=== PATIENT | male | born 1945 | race Hispanic/Latino ===

== ENCOUNTER 2021-08-02 11:00 | Inpatient (IN) | payer OTHER ==
[~2021-08-02] VITALS: Ht 170.2 cm; Wt 88.1 kg
[2021-08-02 13:26] LABS: APPEARANCE,URINE Clear (CLEAR); BILIRUBIN,URINE Negative (NEGATIVE); COLOR,URINE Yellow (YELLOW); GLUCOSE, URINE (UA) Negative (NEGATIVE); KETONES,URINE Negative (NEGATIVE); LEUKOCYTE ESTERASE ,URINE Negative (NEGATIVE); NITRATE,URINE Negative (NEGATIVE); OCCULT BLOOD,URINE Negative (NEGATIVE); PH,URINE 6.5 (5.0-8.0); PROTEIN,URINE Negative (NEGATIVE); UROBILINOGEN,URINE 0.2 mg/dL (0.2-1.0)
[2021-08-02 13:26] LABS: BASOPHILS % (AUTO) 0.4 % (0.0-5.0); EOSINOPHILS % (AUTO) 3.1 % (0.0-8.0); HEMATOCRIT 41.5 % (42-54); LYMPHOCYTES % (AUTO) 22.6 % (21.0-51.0); MEAN CORPUSCULAR HEMOGLOBIN 32.2 pg (27.0-33.0); MEAN CORPUSCULAR HGB CONC 32.8 g/dL (32.0-36.0); MEAN CORPUSCULAR VOLUME 98.3 fL (79-99); MONOCYTES % (AUTO) 10.4 % (3.0-13.0); NEUTROPHILS % (AUTO) 63.2 % (40.0-77.0); PLATELET COUNT (AUTO) 169 K/uL (130-400); RED BLOOD CELL COUNT(AUTO) 4.22 MIL/uL (4.50-6.20); RED CELL DISTRIBUTION WIDTH 12.7 % (11.0-15.5); WHITE BLOOD COUNT (AUTO) 7.8 K/uL (4.8-10.8)
[2021-08-02 13:35] LABS: INR 0.93 (0.85-1.15); PROTHROMBIN TIME 10.2 SEC (9.6-11.6)
[2021-08-02 13:36] LABS: PARTIAL THROMBOPLASTIN TIME 27.8 SEC (26.3-35.5)
[2021-08-02 13:40] LABS: CREATININE 0.7 mg/dL (0.5-1.5); POTASSIUM 4.3 mmol/L (3.5-5.1)
[2021-08-04] VITALS (22 sets, daily range): BP systolic 108–147; BP diastolic 49–66
[2021-08-04] MEDS ORDERED: CEFAZOLIN SODIUM 1 GM VIAL ONE ×2 (06:42→07:27)
[2021-08-04] MEDS ORDERED: 0.9%NACL 1000ML 1,000 ML IV ONE (06:43)
[2021-08-04] MEDS ORDERED: CEFAZOLIN SODIUM 1 GM VIAL IVP ONE (08:00)
[2021-08-04] MEDS ORDERED: LIDOCAINE PF 100MG/5ML (2%) SYRINGE 5ML ONE (08:05)
[2021-08-04] MEDS ORDERED: PROPOFOL 10 MG/ML 20ML VIAL IV ONE (08:05)
[2021-08-04] MEDS ORDERED: SUCCINYLCHOLINE CHLORIDE 20 MG/ML 10 ML VIAL ONE (08:05)
[2021-08-04] MEDS ORDERED: ROCURONIUM 10MG/1ML SYR 10 MG/ML ML ONE (08:06)
[2021-08-04] MEDS ORDERED: KETAMINE 50MG/ML SYRINGE 50 MG/ML DISP.SYRIN IV ONE (08:07)
[2021-08-04] MEDS ORDERED: GLYCOPYRROLATE 1 MG/5 ML SYRINGE ONE (08:25)
[2021-08-04] MEDS ORDERED: TRANEXAMIC ACID 1000MG/10ML ONE ×2 (08:26→10:41)
[2021-08-04] MEDS ORDERED: ROPIVACAINE 0.5% 5MG/ML 30ML IJ ONE (08:26)
[2021-08-04] MEDS ORDERED: LISI40TA9 PO (09:20)
[2021-08-04] MEDS ORDERED: METF-445 PO (09:20)
[2021-08-04] MEDS ORDERED: AEC81 PO (09:20)
[2021-08-04] MEDS ORDERED: GLIP5TAB11 PO (09:20)
[2021-08-04] MEDS ORDERED: AMLO-257 PO (09:20)
[2021-08-04] MEDS ORDERED: LEVO75CA5 PO (09:20)
[2021-08-04] MEDS ORDERED: ACET-66 PO (09:20)
[2021-08-04] MEDS ORDERED: FENTANYL CITRATE PF 50 MCG/1 ML 2ML VIAL ONE (09:31)
[2021-08-04] MEDS ORDERED: ONDANSETRON 4MG INJ ONE (09:58)
[2021-08-04] MEDS ORDERED: NEOSTIGMINE 5MG/5ML SYR IV ONE (09:59)
[2021-08-04] MEDS ORDERED: POTASSIUM CHLORIDE 10% ELIXIR 20 MEQ/15 ML UDCUP PO PRN (10:30)
[2021-08-04] MEDS ORDERED: TEMAZEPAM 15 MG CAPSULE PO PRN (10:30)
[2021-08-04] MEDS ORDERED: FERROUS FUMARATE 324 MG TABLET PO PRN (10:30)
[2021-08-04] MEDS ORDERED: ONDANSETRON 4MG INJ IVP PRN (10:30)
[2021-08-04] MEDS ORDERED: LIDOCAINE HCL-MPF 1% 2ML VIAL IV PRN (10:30)
[2021-08-04] MEDS ORDERED: TRAMADOL HCL 50 MG TABLET PO PRN (10:30)
[2021-08-04] MEDS ORDERED: OXYCODONE HCL 5 MG TAB PO PRN (10:30)
[2021-08-04] MEDS: 0.9%NACL 1000ML 1,000 ML IV SCH ×2 (10:30→22:46)
[2021-08-04] MEDS ORDERED: POTASSIUM CHLORIDE 20MEQ/100ML 100 ML IV PRN (10:30)
[2021-08-04] MEDS: ACETAMINOPHEN 500 MG TABLET PO SCH ×3 (10:30→19:33)
[2021-08-04] MEDS ORDERED: DiphenhydrAMINE HCL 50 MG/ML VIAL IVP PRN (10:30)
[2021-08-04] MEDS: INSULIN HUMULIN R 100 UNIT/ML 3ML SQ SCH ×3 (11:27→21:00)
[2021-08-04] MEDS: OXYCODONE HCL 5 MG TAB PO PRN ×2 (12:11→22:45)
[2021-08-04] MEDS: KETOROLAC 15MG/ML VIAL (15MG/ML) IV PRN (13:41)
[2021-08-04] MEDS: CEFAZOLIN SODIUM 1 GM VIAL IVP SCH ×2 (15:19→22:42)
[2021-08-04] MEDS ORDERED: BENZOCAINE/MENTH/CETYLPYRD CL 1 EACH LOZENGE MM ONE (16:28)
[2021-08-04] MEDS ORDERED: BENZOCAINE/MENTH/CETYLPYRD CL 1 EACH LOZENGE MM PRN (16:30)
[2021-08-04] MEDS: METFORMIN HCL 850 MG TABLET PO SCH (18:57)
[2021-08-04] MEDS: GLIPIZIDE 5 MG TABLET PO SCH (22:37)
[2021-08-04] MEDS: FAMOTIDINE 20MG TAB PO SCH (22:37)
[2021-08-04] MEDS: PREGABALIN 25 MG CAP PO SCH (22:37)
[2021-08-04] MEDS: CELECOXIB 200 MG CAP PO SCH (22:37)
[2021-08-04] MEDS: LISINOPRIL 40 MG TABLET PO SCH (22:37)
[2021-08-04] MEDS: ASPIRIN 81 MG EC TAB PO SCH (22:38)
[2021-08-04] MEDS: SIMETHICONE 80 MG TAB.CHEW PO PRN (22:42)
[2021-08-05] MEDS: ACETAMINOPHEN 500 MG TABLET PO SCH ×3 (03:00→17:38)
[2021-08-05 03:26] VITALS: BP 118/53
[2021-08-05 04:14] LABS: HEMATOCRIT 33.3 % (42-54); MEAN CORPUSCULAR HEMOGLOBIN 31.7 pg (27.0-33.0); MEAN CORPUSCULAR HGB CONC 32.4 g/dL (32.0-36.0); MEAN CORPUSCULAR VOLUME 97.7 fL (79-99); RED BLOOD CELL COUNT(AUTO) 3.41 MIL/uL (4.50-6.20); RED CELL DISTRIBUTION WIDTH 12.8 % (11.0-15.5); WHITE BLOOD COUNT (AUTO) 9.4 K/uL (4.8-10.8)
[2021-08-05 04:23] LABS: CREATININE 0.9 mg/dL (0.5-1.5); POTASSIUM 3.8 mmol/L (3.5-5.1)
[2021-08-05] MEDS ORDERED: LEVOTHYROXINE 75 MCG TABLET ONE (05:15)
[2021-08-05] MEDS: SIMETHICONE 80 MG TAB.CHEW PO PRN (05:19)
[2021-08-05] MEDS: CALCIUM CARB 500MG PO PRN ×2 (05:19→17:37)
[2021-08-05] MEDS: LEVOTHYROXINE 75 MCG TABLET PO SCH (05:19)
[2021-08-05] MEDS: KCL 20 MEQ ERTAB PO PRN ×2 (05:20→17:38)
[2021-08-05] MEDS: 0.9%NACL 1000ML 1,000 ML IV SCH (06:30)
[2021-08-05 07:30] VITALS: BP 109/49
[2021-08-05] MEDS: INSULIN HUMULIN R 100 UNIT/ML 3ML SQ SCH ×4 (07:30→21:00)
[2021-08-05] MEDS: METFORMIN HCL 850 MG TABLET PO SCH ×2 (08:41→17:38)
[2021-08-05] MEDS: PREGABALIN 25 MG CAP PO SCH ×2 (08:41→20:49)
[2021-08-05] MEDS: FAMOTIDINE 20MG TAB PO SCH ×2 (08:42→20:48)
[2021-08-05] MEDS: GLIPIZIDE 5 MG TABLET PO SCH ×2 (08:42→20:48)
[2021-08-05] MEDS: POLYETHYLENE GLYCOL 3350 17 GM POWD.PACK PO SCH (08:43)
[2021-08-05] MEDS: ASPIRIN 81 MG EC TAB PO SCH ×2 (08:43→20:49)
[2021-08-05] MEDS: CELECOXIB 200 MG CAP PO SCH ×2 (08:43→20:47)
[2021-08-05] MEDS: AMLODIPINE 5 MG TAB PO SCH (09:00)
[2021-08-05] MEDS: TAMSULOSIN HCL 0.4 MG CAP.ER.24H PO SCH (09:00)
[2021-08-05] MEDS: LISINOPRIL 40 MG TABLET PO SCH ×2 (09:00→20:48)
[2021-08-05 11:00] VITALS: BP 112/53
[2021-08-05 16:00] VITALS: BP 145/54
[2021-08-05 19:43] VITALS: BP 143/56
[2021-08-05 23:22] VITALS: BP 134/57
[2021-08-06] MEDS: ACETAMINOPHEN 500 MG TABLET PO SCH ×3 (02:56→17:54)
[2021-08-06] MEDS: LEVOTHYROXINE 75 MCG TABLET PO SCH (05:08)
[2021-08-06] MEDS: INSULIN HUMULIN R 100 UNIT/ML 3ML SQ SCH ×3 (05:55→16:30)
[2021-08-06] MEDS: METFORMIN HCL 850 MG TABLET PO SCH ×2 (07:53→16:57)
[2021-08-06 07:59] VITALS: BP 149/59
[2021-08-06] MEDS: PREGABALIN 25 MG CAP PO SCH (09:00)
[2021-08-06] MEDS: ASPIRIN 81 MG EC TAB PO SCH (09:39)
[2021-08-06] MEDS: CELECOXIB 200 MG CAP PO SCH (09:39)
[2021-08-06] MEDS: FAMOTIDINE 20MG TAB PO SCH (09:40)
[2021-08-06] MEDS: POLYETHYLENE GLYCOL 3350 17 GM POWD.PACK PO SCH (09:40)
[2021-08-06] MEDS: GLIPIZIDE 5 MG TABLET PO SCH (09:40)
[2021-08-06] MEDS: TAMSULOSIN HCL 0.4 MG CAP.ER.24H PO SCH (09:40)
[2021-08-06 10:52] VITALS: BP 154/52
[2021-08-06] MEDS: AMLODIPINE 5 MG TAB PO SCH (12:10)
[2021-08-06] MEDS: LISINOPRIL 40 MG TABLET PO SCH (12:10)
[2021-08-06] MEDS: KETOROLAC 15MG/ML VIAL (15MG/ML) IV PRN (13:39)
[2021-08-06 16:01] VITALS: BP 142/54
[2021-08-06] MEDS ORDERED: HYDR-4060 PO (18:35)
[2021-08-06] MEDS ORDERED: AEC81 PO (18:35)
[2021-08-07] MEDS ORDERED: BISACODYL 10 MG SUPP.RECT RC PRN (10:30)
== END 2021-08-06 20:12 | disposition home health service (06) | DRG 470 ==
LOC: DAHIP 08-04 06:24 → 4BH 08-04 11:15
PROVIDERS: ADMIT Orthopaedic Surgery; ATTEND Orthopaedic Surgery
PROC: 0SRC0J9 Replacement of Right Knee Joint with Synthetic Substitute, Cemented, Open Approach (ICD-10-PCS; principal; 2021-08-04 09:05)
PROC: 5A09357 Assistance with Respiratory Ventilation, Less than 24 Consecutive Hours, Continuous Positive Airway Pressure (ICD-10-PCS; 2021-08-04 09:05)
PROC: 5A09357 Assistance with Respiratory Ventilation, Less than 24 Consecutive Hours, Continuous Positive Airway Pressure (ICD-10-PCS; 2021-08-05)
DX: M17.11 Unilateral primary osteoarthritis, right knee (principal); D64.9 Anemia, unspecified; E11.9 Type 2 diabetes mellitus without complications; I10 Essential (primary) hypertension; M06.9 Rheumatoid arthritis, unspecified; E66.9 Obesity, unspecified; Z96.652 Presence of left artificial knee joint; F17.200 Nicotine dependence, unspecified, uncomplicated; Z20.822 Contact with and (suspected) exposure to COVID-19; M47.896 Other spondylosis, lumbar region; Z68.30 Body mass index [BMI] 30.0-30.9, adult; Z83.3 Family history of diabetes mellitus
CPT/HCPCS: 36415; 80048; 81003; 82948; 85025; 85027; 85610; 85730; 87088; 87635; 87641; 97039; G0378; J0330; J0690; J1815; J1885; J2001; J2405; J2704; J2710; J2795; J3010; J3490; J7030

== ENCOUNTER 2021-08-13 10:55 | Emergency (ER) | payer OTHER ==
[~2021-08-13] VITALS: Ht 157.5 cm; Wt 81.6 kg
[~2021-08-13 10:55] MED LIST: AEC81 PO; AMLO-257 PO; GLIP5TAB11 PO; HYDR-4060 PO; LEVO75CA5 PO; LISI40TA9 PO; METF-445 PO
[2021-08-13 11:33] LABS: BASOPHILS % (AUTO) 0.3 % (0.0-5.0); EOSINOPHILS % (AUTO) 0.4 % (0.0-8.0); HEMATOCRIT 33.4 % (42-54); LYMPHOCYTES % (AUTO) 7.9 % (21.0-51.0); MEAN CORPUSCULAR HEMOGLOBIN 31.9 pg (27.0-33.0); MEAN CORPUSCULAR HGB CONC 33.5 g/dL (32.0-36.0); MEAN CORPUSCULAR VOLUME 95.2 fL (79-99); MONOCYTES % (AUTO) 9.9 % (3.0-13.0); NEUTROPHILS % (AUTO) 80.7 % (40.0-77.0); PLATELET COUNT (AUTO) 385 K/uL (130-400); RED BLOOD CELL COUNT(AUTO) 3.51 MIL/uL (4.50-6.20); RED CELL DISTRIBUTION WIDTH 12.4 % (11.0-15.5); WHITE BLOOD COUNT (AUTO) 13.5 K/uL (4.8-10.8)
[2021-08-13 11:40] LABS: CREATININE 0.9 mg/dL (0.5-1.5)
[2021-08-13 11:47] LABS: ALBUMIN 3.1 g/dL (3.5-5.0); BILIRUBIN,TOTAL 0.7 mg/dL (0.2-1.0); TOTAL PROTEIN, SERUM 7.8 g/dL (6.0-8.3)
[2021-08-13] MEDS ORDERED: 0.9%NACL 1000ML 1,000 ML IV ONE (12:30)
[2021-08-13] MEDS ORDERED: IOHEXOL 350 MG/ML 100ML INFUS..BTL IV ONE (13:15)
[2021-08-13] MEDS ORDERED: META800T72 PO (14:04)
[2021-08-13 14:31] VITALS: BP 145/78
== END 2021-08-13 14:32 | disposition home or self-care (01) ==
LOC: EDH 10:55
DX: R07.89 Other chest pain (principal); M79.604 Pain in right leg; E11.9 Type 2 diabetes mellitus without complications; E78.00 Pure hypercholesterolemia, unspecified; I10 Essential (primary) hypertension; Z79.82 Long term (current) use of aspirin; Z79.84 Long term (current) use of oral hypoglycemic drugs; Z79.899 Other long term (current) drug therapy
CPT/HCPCS: 36415; 71045; 71275; 80053; 84484; 85025; 85378; 93005; 93971; 96360; 99285; J7030; Q9967